=== PATIENT | female | born 2000 | race Caucasian/White ===

== ENCOUNTER 2023-10-16 11:46 | Emergency (ER) | payer MEDICAID ==
--- NOTE | 2023-10-16 11:57 | ERPHSYRPT ---
- History of Present Illness Time Seen by Provider: 10/16/23 11:57 Source: patient Exam Limitations: no limitations Physician History: This is a 23-year-old white female patient who is not on any medications and has no known drug allergies and is a patient of Dr. Davis and presents with approximately 1 week history of cough, fever, vomiting and headache symptoms. In addition she has arthralgias and myalgias. Patient's nephew has had similar symptoms per her report. The vomiting and diarrhea symptoms have subsided. She seemed to have the headache when there was a spike in her fever. She is afebrile today. Timing/Duration: week(s) (1), other (Symptoms have persisted) Cough Quality/Degree: mild, dry cough Possible Cause: no prior episodes Modifying Factors: Improves With: coughing Associated Symptoms: fever, cough, muscle aches, No chest pain/soreness, No shortness of breath, No sore throat Allergies/Adverse Reactions: No Known Drug Allergies Allergy (Unverified 10/16/23 12:09) Travel Risk - International Travel Have you traveled outside of the country in past 3 weeks: No - Coronavirus Screening Are you exhibiting any of the following symptoms?: Yes Symptoms: Cough: New Onset, Vomiting/Diarrhea, Headaches/Body Aches/Fatigue Close contact with a COVID-19 positive Pt in past 14-21 Days: No - Review of Systems Constitutional: Fever, Night Sweats Eyes: No Symptoms Ears, Nose, & Throat: No Symptoms Respiratory: Cough Cardiac: No Symptoms Abdominal/Gastrointestinal: Vomiting, Diarrhea Genitourinary Symptoms: No Symptoms Musculoskeletal: Arthralgias, Myalgias Skin: No Symptoms Neurological: Headache Psychological: No Symptoms Endocrine: No Symptoms Hematologic/Lymphatic: No Symptoms Immunological/Allergic: No Symptoms All Other Systems: Reviewed and Negative - Past Medical History Pertinent Past Medical History: No - Past Surgical History Past Surgical History: No - Nursing Vital Signs Nursing Vital Signs: Initial Vital Signs Temperature 97.4 F 10/16/23 12:10 Pulse Rate 64 10/16/23 12:10 Respiratory Rate 16 10/16/23 12:10 Blood Pressure 118/84 10/16/23 12:10 O2 Sat by Pulse Oximetry 99 10/16/23 12:10 Pain Scale Pain Intensity 0 - Physical Exam General Appearance: no apparent distress, alert, anxiety, thin Eye Exam: PERRL/EOMI, eyes nml inspection Ears, Nose, Throat Exam: normal ENT inspection, moist mucous membranes Neck Exam: normal inspection, non-tender, supple, full range of motion Respiratory Exam: normal breath sounds, lungs clear, airway intact, No chest tenderness, No respiratory distress Cardiovascular Exam: regular rate/rhythm, normal heart sounds, normal peripheral pulses Gastrointestinal/Abdomen Exam: soft, normal bowel sounds, No tenderness Pelvic Exam: not done Rectal Exam: not done Back Exam: normal inspection, normal range of motion, No CVA tenderness, No vertebral tenderness Extremity Exam: normal inspection, normal range of motion, pelvis stable Neurologic Exam: alert, oriented x 3, cooperative, machine puller and laster II-XII nml as tested, normal mood/affect, nml cerebellar function, nml station & gait, sensation nml Skin Exam: normal color, warm, dry Lymphatic Exam: No adenopathy SpO2 Interpretation: normal O2 Delivery: Room Air - Course Nursing assessment & vital signs reviewed: Yes Ordered Tests: Active Orders 24 hr Category Date Time Status CHEST 1 VIEW (PORTABLE) Stat Exams 10/16/23 12:14 Completed HCG QUALITATIVE, URINE Stat Lab 10/16/23 Ordered UA W/RFX UR CULTURE Stat Lab 10/16/23 12:14 Ordered Lab/Rad Data: Laboratory Results 10/16/23 Range/Units 12:15 Influenza Type A Ag POSITIVE (NEGATIVE) Influenza Type B Ag NEGATIVE (NEGATIVE) RSV (PCR) NEGATIVE (NEGATIVE) SARS-CoV-2 (PCR) POSITIVE A (NEGATIVE) - Progress Progress: re-examined, unchanged Air Movement: good Progress Note: 10/16/23 12:32 This patient's medical issue is of low complexity. The level of complexity and the workup performed is based on review of the patient's past medical history, review of the patient's medication list, review of the patient's drug allergy list, history present illness and physical findings on examination. The workup includes chest x-ray, urinalysis, test, viral swabs and group A strep swab. 10/16/23 12:48 Chest x-ray was interpreted by the radiologist and I reviewed the impression. This is a normal study with no evidence of any acute abnormality. 10/16/23 13:01 I interpreted the patient's laboratory data results. The patient has positive flu a and positive COVID test. 10/16/23 13:04 Patient's symptoms began 6 to 7 days ago and therefore I will not be prescribing Tamiflu Blood Culture(s) Obtained: No Antibiotics given: No Counseled pt/family regarding: lab results, diagnosis, need for follow-up, rad results Medical Desision Making - Diagnostic Testing Diagnostic test were ordered, analyzed, and reviewed by me: Yes Radiological Interpretation: Reviewed by me, Teleradiologist Report - Risk of complications The pt has a mod risk of morbidity or mortality based on: Need for prescription drug management - Departure Departure Disposition: Home Clinical Impression: Influenza A H1N1 infection, COVID-19 virus infection Condition: Stable Critical Care Time: No Referrals: CRISTIAN DAVIS MD [Primary Care Provider] - Follow up/PCP as directed Additional Instructions: Drink plenty of fluids. Take your medications as prescribed. Use Tylenol and ibuprofen for pain and fever control Prescriptions: Prednisone 10 mg [Deltasone 10 mg] 10 mg PO TID #12 tablet
[2023-10-16 12:11] VITALS: PULSE 64; TEMP 97.4
[2023-10-16 12:13] VITALS: RESP 20
--- NOTE | 2023-10-16 12:36 | XRAY ---
Indication: Fever and cough 1 week. Comparison: None Portable chest demonstrates normal heart, lungs, and bony thorax.
[2023-10-16 12:56] LABS: INFLUENZA B NEGATIVE (NEGATIVE); RESPIRATORY SYNCTIAL VIRUS NEGATIVE (NEGATIVE)
[2023-10-16 12:57] LABS: SARS-CoV-2 Xpert Express POSITIVE (NEGATIVE)
[2023-10-16 12:58] LABS: INFLUENZA A POSITIVE (NEGATIVE)
[2023-10-16 15:06] LABS: HCG URINE TEST NEGATIVE (NEGATIVE)
[2023-10-16 15:12] VITALS: BP 114/72; O2SAT 100
[2023-10-16 15:12] LABS: Appearance Cloudy (Clear); Bacteria Many /HPF (None Seen); Bilirubin Negative (Negative); Blood Negative (Negative); Epithelial Cells Moderate /HPF (None Seen); Glucose, Urine Negative (Negative); Hyaline Casts NONE SEEN /LPF (0-2); Ketones 15 (Negative); Leukocyte Esterase Negative (Negative); Nitrite Positive (Negative); Protein,Urine Dip 30 (Negative); RBC 0-2 /HPF (0-5); Specific Gravity 1.025 (1.005-1.030)
[2023-10-16 15:14] LABS: ADD URINE CULTURE? YES (NO)
== END 2023-10-16 15:44 | disposition home or self-care (01) ==
LOC: ED 11:46
DX: J10.1 Influenza due to other identified influenza virus with other respiratory manifestations (principal); U07.1 COVID-19; N39.0 Urinary tract infection, site not specified; R05.1 Acute cough; R50.9 Fever, unspecified; R11.10 Vomiting, unspecified; R51.9 Headache, unspecified; M79.10 Myalgia, unspecified site; Z79.52 Long term (current) use of systemic steroids
CPT/HCPCS: 0241U; 71045; 81001; 81025; 87086; 87651; 99283